=== PATIENT | female | born 1955 | race Caucasian/White ===

== ENCOUNTER 2018-06-18 12:13 | Day surgery (SDC) | payer OTHER ==
[~2018-06-18] VITALS: Ht 175.3 cm; Wt 96.2 kg
[~2018-06-18 12:13] MED LIST: CEFAZOLIN 1,000 MG ONE; DEXAMETHASONE 4 MG/ML, 1ML ONE; KETOROLAC 30 MG/1 ML ONE; ONDANSETRON 2MG/ML, 2ML ONE; PROPOFOL 10 MG/ML, 20ML ONE
[2018-06-18] MEDS ORDERED: LIDOCAINE 1%, 10ML INFIL ONE (12:30)
[2018-06-18] MEDS ORDERED: LIDOCAINE-MPF 1%, 5ML ONE (12:31)
[2018-06-18] MEDS ORDERED: OMEP-110 PO (12:42)
--- NOTE | 2018-06-18 12:46 | NUR ---
PT TO ED AFTER FALLING ON MEANS TREE THORN APPROX 1 HOUR AGO. THORN WENT THROUGH ANTERIOR 1ST DIGIT METAPARPAL JOINT. THORN CAN BE FELT ON DORSAL SIDE OF HAND AT JOINT. CONNECTED TO MONITORS. VSS. EDMD TO BEDSIDE FOR ASSESSMENT. XRAY COMPLETE. AWAITING FURTHER ORDERS AND RESULTS.
--- NOTE | 2018-06-18 13:57 | NUR ---
PT RESTING IN ROOM WITH AT BEDSIDE. VSS. NO NEEDS AT THIS TIME. AWAITING ORTHO CONSULT.
[2018-06-18] MEDS ORDERED: SODIUM CHLORIDE 0.9% 1,000 ML IV ONE (14:13)
[2018-06-18] MEDS ORDERED: SODIUM CHLORIDE FLUSH 10ML SYR IVF ONE (14:30)
[2018-06-18] MEDS ORDERED: CEFAZOLIN 1,000 MG IM ONE (14:30)
--- NOTE | 2018-06-18 15:03 | NUR ---
TASK RN NOTE: PIV PLACED TO LEFT SHOULDER, PT TOLERATED WELL.
--- NOTE | 2018-06-18 15:24 | NUR ---
IV ESTABLISHED. IVF STARTED. VSS. NO NEEDS AT THIS TIME. AWAITING ROOM ASSIGNMENT.
[2018-06-18] MEDS ORDERED: CEFAZOLIN 2,000 MG in SODIUM CHLORIDE 0.9% 50 ML IV ONE (15:30)
[2018-06-18] MEDS ORDERED: MORPHINE SULFATE 4 MG/ML, 1ML IVPush PRN (16:00)
[2018-06-18 19:24] VITALS: BP 156/96
[2018-06-18] MEDS ORDERED: MEPERIDINE/PF 25MG/0.5ML IVPush PRN (19:30)
[2018-06-18] MEDS ORDERED: HYDROmorphone 2 MG/ML, 1ML IVPush PRN (19:30)
[2018-06-18] MEDS ORDERED: LABETALOL 5 MG/ML SYRINGE IV PRN (19:30)
[2018-06-18] MEDS ORDERED: PROMETHAZINE 25 MG/ML, 1ML IV PRN (19:30)
[2018-06-18] MEDS ORDERED: PROCHLORPERAZINE 5 MG/ML, 2ML IV PRN (19:30)
[2018-06-18] MEDS ORDERED: hydrALAzine 20 MG/ML, 1ML IV PRN (19:30)
[2018-06-18] MEDS ORDERED: FENTANYL PF 100 MCG/2ML IV PRN (19:30)
[2018-06-18] MEDS ORDERED: HALOPERIDOL 5 MG/ML IV PRN (19:30)
[2018-06-18] MEDS ORDERED: METOPROLOL 1 MG/ML, 5ML IV PRN (19:30)
[2018-06-18] MEDS ORDERED: OXYcodone 5 MG/5 ML ORAL.SOL UDC PO PRN (19:30)
[2018-06-18] MEDS ORDERED: morphine SULFATE 10 MG/ML, 1ML IVPush PRN (19:30)
[2018-06-18] MEDS ORDERED: DIPHENHYDRAMINE 50 MG/ML, 1ML IVPush PRN (19:30)
[2018-06-18] MEDS ORDERED: ONDANSETRON 2MG/ML, 2ML IVPush PRN (19:30)
[2018-06-18] MEDS ORDERED: FENTANYL PF 100 MCG/2ML ONE (20:52)
[2018-06-18] MEDS ORDERED: BUPIVACAINE/PF-EPI 0.5% 1:200K ONE (21:04)
[2018-06-18] MEDS ORDERED: BUPIVACAINE/PF-EPI 0.5% 1:200K INFIL ONE (21:11)
[2018-06-18] MEDS ORDERED: hydrALAzine 20 MG/ML, 1ML ONE (21:49)
[2018-06-18] MEDS ORDERED: SULF1TAB24 PO (22:31)
[2018-06-18] MEDS ORDERED: OXYC5TAB3 PO (22:32)
== END 2018-06-18 23:30 | disposition home or self-care (01) ==
LOC: ED 13:31 → OR 14:13 → UNDOADMIN 14:13 → EDIP 14:13 → 4NOR 16:17 → OR 23:30 → UNDODISIN 23:30
PROVIDERS: ATTEND Emergency Medicine
DX: M79.5 Residual foreign body in soft tissue (principal); K21.9 Gastro-esophageal reflux disease without esophagitis; Z86.19 Personal history of other infectious and parasitic diseases; Z88.1 Allergy status to other antibiotic agents; Z88.5 Allergy status to narcotic agent; Z88.8 Allergy status to other drugs, medicaments and biological substances
CPT/HCPCS: 26075; 73130; 96365; 99285; J0360; J0690; J1100; J1885; J2270; J2405; J2704; J3010; J7030; G0378